=== PATIENT | female | born 1995 | race Caucasian/White ===

== ENCOUNTER 2019-02-01 19:07 | Emergency (ER) | payer OTHER ==
[~2019-02-01] VITALS: Ht 152.4 cm; Wt 54.4 kg
--- OUTSIDE RECORDS SUMMARY | 2019-02-01 19:09 | XMS REPORT ---
Author Author [facility] Address Unknown Phone Unavailable Care Team Providers Care Turbine Attendant Name Role Phone Unavailable Unavailable Payers Payer Name Policy Type Policy Number Effective Date Expiration Date Problems This patient has no known problems. Allergies, Adverse Reactions, Alerts Allergy Name Allergy Type Status Severity Reaction(s) Onset Date Inactive Date Treating Clinician Comments hydrocodone DA Active ID 2018-12-07 00:00:00 hydrocodone DA Active ID 2018-08-02 00:00:00 hydrocodone DA Active ID 2017-07-04 00:00:00 Medications This patient has no known medications. Results Test Description Test Time Test Comments Text Results Atomic Results Result Comments URINALYSIS COMPLETE 2018-12-07 18:07:00 UA COLOR (test code=COLU) YELLOW YELLOW UA APPEARANCE (test code=APPU) SLIGHTLY CLOUDY CLEAR UA GLUCOSE DIPSTICK (test code=DGLUU) NEGATIVE mg/dL NEGATIVE UA BILIRUBIN DIPSTICK (test code=BILU) NEGATIVE mg/dL NEGATIVE UA KETONE DIPSTICK (test code=KETU) 5 (Trace) mg/dL NEGATIVE UA SPECIFIC GRAVITY (test code=SGU) 1.009 1.001-1.035 UA BLOOD DIPSTICK (test code=MARII) 1+ (Small) NEGATIVE UA PH DIPSTICK (test code=IAN) 6.0 5.0-8.0 UA PROTEIN DIPSTICK (test code=PROU) Negative mg/dL NEGATIVE UA UROBILINIOGEN DIPSTICK (test code=URO) NEGATIVE mg/dL NEGATIVE UA NITRITE DIPSTICK (test code=KIANNA) NEGATIVE NEGATIVE UA LEUKOCYTE ESTERASE W REFLEX (test code=LEUUR) 3+ NEGATIVE UA WBC (test code=WBCU) 6-10 #/HPF 0-5 UA RBC (test code=RBCU) 0-2 #/HPF 0-5 UA EPITHELIAL CELLS (test code=EPIU) FEW per HPF FEW UA BACTERIA (test code=BACU) FEW #/HPF NONE UA MUCUS (test code=MUCU) FEW #/LPF FEW Urine Source? Clean CatchUR HCG [id number] 18:07:00* Test Item Value Reference Range Comments UR HCG QUAL (test code=HCGQLU) NEGATIVE This HCGQL test is NOT applicable for MALE patients.Check with nurse about probable order error.If Tumor Marker Test needed, nurse should order test "HCGTU"(Test #550.58648) Urine Source? Clean CatchURINALYSIS [id number] 18:04:00* Test Item Value Reference Range Comments UA COLOR (test code=COLU) YELLOW YELLOW UA APPEARANCE (test code=APPU) SLIGHTLY CLOUDY CLEAR UA GLUCOSE DIPSTICK (test code=DGLUU) NEGATIVE mg/dL NEGATIVE UA BILIRUBIN DIPSTICK (test code=BILU) NEGATIVE mg/dL NEGATIVE UA KETONE DIPSTICK (test code=KETU) 5 (Trace) mg/dL NEGATIVE UA SPECIFIC GRAVITY (test code=SGU) 1.009 1.001-1.035 UA BLOOD DIPSTICK (test code=MARII) 1+ (Small) NEGATIVE UA PH DIPSTICK (test code=IAN) 6.0 5.0-8.0 UA PROTEIN DIPSTICK (test code=PROU) Negative mg/dL NEGATIVE UA UROBILINIOGEN DIPSTICK (test code=URO) NEGATIVE mg/dL NEGATIVE UA NITRITE DIPSTICK (test code=KIANNA) NEGATIVE NEGATIVE UA LEUKOCYTE ESTERASE W REFLEX (test code=LEUUR) 3+ NEGATIVE UA WBC (test code=WBCU) per HPF 0-5 Urine Source? Clean CatchUR HCG [id number] 18:04:00* Test Item Value Reference Range Comments UR HCG QUAL (test code=HCGQLU) NEGATIVE This HCGQL test is NOT applicable for MALE patients.Check with nurse about probable order error.If Tumor Marker Test needed, nurse should order test "HCGTU"(Test #550.85780) Urine Source? Clean CatchURINALYSIS [id number] 18:02:00* Test Item Value Reference Range Comments UA COLOR (test code=COLU) YELLOW UA APPEARANCE (test code=APPU) CLEAR UA BILIRUBIN DIPSTICK (test code=BILU) NEGATIVE UA SPECIFIC GRAVITY (test code=SGU) 1.001-1.035 UA PH DIPSTICK (test code=IAN) 5.0-8.0 UA UROBILINIOGEN DIPSTICK (test code=URO) mg/dL 0.0-0.2 UA NITRITE DIPSTICK (test code=KIANNA) NEGATIVE UA LEUKOCYTE ESTERASE W REFLEX (test code=LEUUR) NEGATIVE UA WBC (test code=WBCU) per HPF 0-5 Urine Source? Clean CatchUR HCG [id number] 18:02:00* Test Item Value Reference Range Comments UR HCG QUAL (test code=HCGQLU) NEGATIVE This HCGQL test is NOT applicable for MALE patients.Check with nurse about probable order error.If Tumor Marker Test needed, nurse should order test "HCGTU"(Test #550.93440) Urine Source? Clean Catch- XR CHEST 1 [id number] 16:17:00 FAX: Jose Cruz Patterson NP [phone] [place]: [address]: REG Name: FELIBERTO RODRIGUEZ [facility] : [birth year] Age/S: 23/F [address] Unit #: [id number] Loc: [place] [address] Phys: Jose Cruz Patterson NP Acct: [id number] Dis Date: Status: REG ER PHONE #: [phone] Exam Date: 12/07/2018 1600 FAX #: [phone] Reason: SOB WITH DIZZINESS EXAMS: CPT CODE: [id number] XR CHEST 1 V [id number] REASON FOR EXAM: SOB WITH DIZZINESS EXAM ORDER DATE: 12/07/2018 3:41 PM Ordering Anayeli: Jose Cruz Patterson NP PROCEDURE: - XR CHEST 1 V COMPARISON: FINDINGS: Portable AP frontal view of the chest ob tained at 3:54 PM shows clear lungs without evidence of consolidation. The re is no evidence of effusion. The heart size is within normal limits. Pulmonary vasculatures are unremarkable. IMPRESSION: No acti ve disease. at 1 517 Reported and signed by: Donnie Moreno M.D. CC: Jose Cruz Patterson NP Technologist: KAI Haynes Trnscrd Date/Time/By: 0 12/07/2018 (7941) : By: ParulL Orig Print D/T: S: 12/07/2018 (4584) PAGE 1 Signed Report COMPREHENSIVE METABOLIC [id number] 16:14:00* Test Item Value Reference Range Comments SODIUM (test code=NA) 137 mmol/L 136-145 POTASSIUM (test code=K) 4.0 mmol/L 3.5-5.1 CHLORIDE (test code=CL) 102.0 mmol/L 98-107 CARBON DIOXIDE (test code=CO2) 26.0 mmol/L 21-32 ANION GAP (test code=GAP) 13.0 10-20 GLUCOSE (test code=GLU) 97 mg/dL 74-106 BLOOD UREA NITROGEN (test code=BUN) 11 mg/dL 7-18 GLOMERULAR FILTRATION RATE (test code=GFR) > 60 mL/min >=60 Estimated GFR by using Modified MDRD formula.Chronic kidney disease is defined as either kidney damageor GFR <60 mL/min/1.73 m2 for >3 months. CREATININE (test code=CREAT) 0.90 mg/dL 0.55-1.02 Note change in reference range due to change in reagent. BUN/CREATININE RATIO (test code=BUN/CREA) 11.8 10-20 TOTAL PROTEIN (test code=PROT) 7.7 gram/dL 6.4-8.2 ALBUMIN (test code=ALB) 4.0 g/dL 3.4-5.0 GLOBULIN (test code=GLOB) 3.7 gram/dL 2.7-4.2 ALBUMIN/GLOBULIN RATIO (test code=A/G) 1.1 0.75-1.50 CALCIUM (test code=CA) 9.0 mg/dL 8.5-10.1 BILIRUBIN TOTAL (test code=BILT) 1.10 mg/dL 0.0-1.0 SGOT/AST (test code=AST) 15 IUnit/L 15-37 SGPT/ALT (test code=ALT) 21 IUnit/L 12-78 ALKALINE PHOSPHATASE TOTAL (test code=ALKP) 71 IUnit/L 45-117 Note change in reference range due to change in reagent. [id number] 16:14:00* Test Item Value Reference Range Comments TROPONIN-I (test code=TROPI) <0.015 ng/mL 0-0.045 COMPREHENSIVE METABOLIC [id number] 16:04:00* Test Item Value Reference Range Comments SODIUM (test code=NA) 137 mmol/L 136-145 POTASSIUM (test code=K) 4.0 mmol/L 3.5-5.1 CHLORIDE (test code=CL) 102.0 mmol/L 98-107 CARBON DIOXIDE (test code=CO2) mmol/L 21-32 ANION GAP (test code=GAP) 10-20 GLUCOSE (test code=GLU) mg/dL 74-106 BLOOD UREA NITROGEN (test code=BUN) mg/dL 7-18 GLOMERULAR FILTRATION RATE (test code=GFR) mL/min >=60 CREATININE (test code=CREAT) mg/dL 0.55-1.02 BUN/CREATININE RATIO (test code=BUN/CREA) 10-20 TOTAL PROTEIN (test code=PROT) gram/dL 6.4-8.2 ALBUMIN (test code=ALB) g/dL 3.4-5.0 GLOBULIN (test code=GLOB) gram/dL 2.7-4.2 ALBUMIN/GLOBULIN RATIO (test code=A/G) 0.75-1.50 CALCIUM (test code=CA) mg/dL 8.5-10.1 BILIRUBIN TOTAL (test code=BILT) mg/dL 0.0-1.0 SGOT/AST (test code=AST) IUnit/L 15-37 SGPT/ALT (test code=ALT) IUnit/L 12-78 ALKALINE PHOSPHATASE TOTAL (test code=ALKP) IUnit/L 45-117 [id number] 16:04:00* Test Item Value Reference Range Comments TROPONIN-I (test code=TROPI) ng/mL 0-0.045 CBC W/AUTO [id number] 15:55:00* Test Item Value Reference Range Comments WHITE BLOOD CELL (test code=WBC) 8.1 K/mm3 4.5-12.5 RED BLOOD CELL (test code=RBC) 4.61 mill/mm3 3.7-5.2 HEMOGLOBIN (test code=HGB) 14.1 gram/dL 11.5-15.5 HEMATOCRIT (test code=HCT) 43.8 % 36.0-46.0 MEAN CELL VOLUME (test code=MCV) 95.0 fL 80-98 MEAN CELL HGB (test code=MCH) 30.6 picogram 27.0-33.0 MEAN CELL HGB CONCETRATION (test code=MCHC) 32.2 gram/dL 33.0-36.0 RED CELL DISTRIBUTION WIDTH (test code=RDW) 12.4 % 11.6-16.2 RED CELL DISTRIBUTION WIDTH SD (test code=RDW-SD) 42.8 fL 37.0-51.0 PLATELET COUNT (test code=PLT) 269 K/mm3 150-450 MEAN PLATELET VOLUME (test code=MPV) 11.6 fL 6.7-11.0 NEUTROPHIL % (test code=NT%) 64.7 % 39.0-69.0 IMMATURE GRANULOCYTE % (test code=IG%) 0.7 % 0.0-5.0 LYMPHOCYTE % (test code=LY%) 23.2 % 25.0-55.0 MONOCYTE % (test code=MO%) 8.6 % 0.0-10.0 EOSINOPHIL % (test code=EO%) 2.3 % 0.0-5.0 BASOPHIL % (test code=BA%) 0.5 % 0.0-1.0 NUCLEATED RBC % (test code=NRBC%) 0.0 % 0-0 NEUTROPHIL # (test code=NT#) 5.25 K/mm3 1.8-7.7 IMMATURE GRANULOCYTE # (test code=IG#) 0.06 x10 3/uL 0-0.03 LYMPHOCYTE # (test code=LY#) 1.89 K/mm3 1.0-5.0 MONOCYTE # (test code=MO#) 0.70 K/mm3 0-0.8 EOSINOPHIL # (test code=EO#) 0.19 K/mm3 0.0-0.5 BASOPHIL # (test code=BA#) 0.04 K/mm3 0.0-0.2 NUCLEATED RBC # (test code=NRBC#) 0.00 K/mm3 0.0-0.1 MANUAL DIFF REQUIRED (test code=MDIFF) NO
--- NOTE | 2019-02-01 20:40 | Diagnostic Imaging Report ---
KNEES STANDING AP VIEW, KNEE LEFT THREE VIEWS -views HISTORY: Pain. COMPARISON: None available. FINDINGS: Bones: No acute displaced fracture. Osseous alignment is within normal limits. Joints: The joint spaces are well-maintained. Soft tissues: The soft tissues appear unremarkable. IMPRESSION: No acute osseous abnormality. Signed by: Dr. Landen Castanon M.D. on 02/01/2019 8:37 PM
[2019-02-01] MEDS ORDERED: IBUPROFEN 600 MG TAB ONE (20:57)
[2019-02-01] MEDS ORDERED: ULTRAM50 MG PO (21:00)
[2019-02-01] MEDS ORDERED: KETOROLAC TROMETHAMINE 60 MG/2 ML VIAL IM ONE (21:00)
[2019-02-01] MEDS ORDERED: IBUPROFEN 600 MG TAB PO ONE (21:15)
== END 2019-02-01 21:26 | disposition home or self-care (01) ==
LOC: ER 19:07
DX: S83.522A Sprain of posterior cruciate ligament of left knee, initial encounter (principal); Y93.B9 Activity, other involving muscle strengthening exercises; Y92.008 Other place in unspecified non-institutional (private) residence as the place of occurrence of the external cause
CPT/HCPCS: 73565; 99283

== ENCOUNTER 2019-12-06 16:54 | Emergency (ER) | payer OTHER ==
[~2019-12-06] VITALS: Ht 152.4 cm; Wt 54.4 kg
[~2019-12-06 16:54] MED LIST: ULTRAM50 MG PO
[2019-12-06 18:45] LABS: BASOPHILS # (AUTO) 0.1 (0.0-0.1); BASOPHILS % 0.5 % (0.0-1.0); EOSINOPHILS # (AUTO) 0.1 (0.0-0.4); EOSINOPHILS % 0.8 % (0.0-6.0); HEMOGLOBIN 15.7 g/dL (12.0-16.0); LYMPHOCYTES # (AUTO) 2.8 (1.0-3.2); LYMPHOCYTES % 26.8 % (18.0-39.1); MEAN CORPUSCULAR HEMOGLOBIN 30.5 pg (28-32); MEAN CORPUSCULAR VOLUME 95.1 fL (81-99); MONOCYTES # (AUTO) 0.8 (0.2-0.8); MONOCYTES % 7.8 % (4.4-11.3); NEUTROPHILS # (AUTO) 6.8 (2.1-6.9); NEUTROPHILS % 63.7 % (38.7-80.0); PLATELET COUNT 281 x10e3/uL (140-360); RED BLOOD COUNT 5.15 x10e6/uL (3.6-5.1); RED CELL DISTRIBUTION WIDTH 12.8 % (11.7-14.4)
[2019-12-06 18:56] LABS: BILIRUBIN,URINE SMALL (NEGATIVE); CLARITY,URINE SL CLOUDY (CLEAR); COLOR,URINE YELLOW (YELLOW); KETONES,URINE NEGATIVE (NEGATIVE); LEUKOCYTE ESTERASE ,URINE 1+ (NEGATIVE); NITRITE,URINE NEGATIVE (NEGATIVE); PROTEIN,URINE DIPSTICK 2+ (NEGATIVE); URINE UROBILINOGEN 0.2 mg/dL (0.2 - 1)
[2019-12-06 18:57] LABS: ALANINE AMINOTRANSFERASE 22 IU/L (0-55); ALBUMIN/GLOBULIN RATIO 1.5 (0.8-2.0); ALKALINE PHOSPHATASE 77 IU/L (40-150); ANION GAP 13.7 mmol/L (8-16); BLOOD UREA NITROGEN 8 mg/dL (7-26); BUN/CREATININE RATIO 10 (6-25); CALCIUM 10.5 mg/dL (8.4-10.2); CARBON DIOXIDE 28 mmol/L (22-29); CHLORIDE 102 mmol/L (98-107); CREATININE, SERUM 0.83 mg/dL (0.57-1.11); EST GLOMERULAR FILTRATION RATE > 60 ML/MIN (60-); GLUCOSE 83 mg/dL (74-118); POTASSIUM 3.7 mmol/L (3.5-5.1); PREGNANCY TEST, URINE NEGATIVE (NEGATIVE); SODIUM 140 mmol/L (136-145)
[2019-12-06 19:03] LABS: RBC,URINE 0-5 /HPF (0-5); WBC,URINE (MAN) 21-50 /HPF (0-5)
[2019-12-06 19:04] LABS: BACTERIA,URINE FEW /HPF; EPITHELIAL CELLS,URINE FEW /LPF
[2019-12-06 19:05] LABS: AMORPHOUS SEDIMENT,URINE RARE (FEW); MUCUS,URINE RARE (RARE)
--- NOTE | 2019-12-06 20:06 | Diagnostic Imaging Report ---
EXAM: CT Abdomen and Pelvis WITH contrast INDICATION: rule out appendicitis COMPARISON: None. TECHNIQUE: Abdomen and pelvis were scanned utilizing a multidetector helical scanner from the lung base to the pubic symphysis after administration of IV contrast. Coronal and sagittal reformations were obtained. Dose modulation, iterative reconstruction, and/or weight based adjustment of the mA/kV was utilized to reduce the radiation dose to as low as reasonably achievable. Routine protocol was performed. Scan was performed when during portal venous phase. IV CONTRAST: 150 mL of Omnipaque 300 ORAL CONTRAST: Water COMPLICATIONS: None RADIATION DOSE: Total DLP: 186.62 mGy-cm Estimated effective dose: (DLP x 0.015 x size factor) mSv CTDIvol has been reviewed. It is below the limits set by the Radiation Protocol Committee (RPC). FINDINGS: LINES and TUBES: None. LOWER THORAX: Unremarkable HEPATOBILIARY: No focal hepatic lesions. No biliary ductal dilation. GALLBLADDER: No radio-opaque stones or sludge. No wall thickening. SPLEEN: No splenomegaly. PANCREAS: No focal masses or ductal dilatation. ADRENALS: No adrenal nodules KIDNEYS/URETERS: Kidneys enhance symmetrically. No hydronephrosis. No cystic or solid mass lesions. No stones. GI TRACT: No abnormal distention, wall thickening, or evidence of bowel obstruction. Appendix is normal. PELVIC ORGANS/BLADDER: Bilateral adnexal cystic lesions are incompletely characterized on this exam. There is a IUD in place in a retroverted uterus. LYMPH NODES: No lymphadenopathy. VESSELS: Unremarkable. PERITONEUM / RETROPERITONEUM: No free air or fluid. BONES: Unremarkable. SOFT TISSUES: Unremarkable. IMPRESSION: 1. Normal appendix. 2. Bilateral adnexal cystic lesions are incompletely characterized on this exam. Recommend further evaluation with pelvic ultrasound. Signed by: Farhad Crane MD on 12/06/2019 8:04 PM
[2019-12-06] MEDS ORDERED: ZOFRAN4 MG SL (20:35)
[2019-12-06 20:56] VITALS: BP 123/85
[2019-12-06] MEDS ORDERED: IOPAMIDOL 370 MG/ML 200 ML INFUS..BTL INJ ONE (21:16)
[2019-12-06] MEDS ORDERED: SODIUM CHLORIDE 0.9% 50ML 50 ML ONE (21:16)
== END 2019-12-06 21:09 | disposition home or self-care (01) ==
LOC: ER 16:54
DX: R10.13 Epigastric pain (principal); R19.7 Diarrhea, unspecified; N30.90 Cystitis, unspecified without hematuria
CPT/HCPCS: 36415; 74177; 80053; 81001; 81025; 82150; 85025; 87086; 87186; 99284; Q9967

== ENCOUNTER 2020-11-28 13:23 | Emergency (ER) | payer OTHER ==
[~2020-11-28] VITALS: Ht 152.4 cm; Wt 65.8 kg
[~2020-11-28 13:23] MED LIST changes: +ZOFRAN4 MG SL
[2020-11-28] MEDS ORDERED: ONDANSETRON HCL INJ 2MG/ML 2ML 2 MG/ML VIAL IV STA (13:37)
[2020-11-28] MEDS ORDERED: KETOROLAC TROMETHAMINE 30 MG/ML VIAL IV STA (13:37)
[2020-11-28] MEDS ORDERED: SODIUM CHLORIDE 0.9% 1000ML 1,000 ML IV STA (13:37)
[2020-11-28 14:07] LABS: BASOPHILS # (AUTO) 0.1 (0.0-0.1); BASOPHILS % 0.6 % (0.0-1.0); EOSINOPHILS # (AUTO) 0.2 (0.0-0.4); EOSINOPHILS % 1.7 % (0.0-6.0); HEMATOCRIT 39.4 % (34.2-44.1); MEAN CORPUSCULAR HEMOGLOBIN 30.7 pg (28-32); MEAN CORPUSCULAR VOLUME 93.1 fL (81-99); MONOCYTES # (AUTO) 0.8 (0.2-0.8); MONOCYTES % 8.4 % (4.4-11.3); NEUTROPHILS # (AUTO) 6.8 (2.1-6.9); NEUTROPHILS % 68.8 % (38.7-80.0); PLATELET COUNT 239 x10e3/uL (140-360); RED BLOOD COUNT 4.23 x10e6/uL (3.6-5.1); RED CELL DISTRIBUTION WIDTH 12.3 % (11.7-14.4)
[2020-11-28 14:30] LABS: PREGNANCY TEST, URINE NEGATIVE (NEGATIVE)
[2020-11-28 14:34] LABS: CLARITY,URINE HAZY (CLEAR); COLOR,URINE YELLOW (YELLOW)
[2020-11-28 14:38] LABS: KETONES,URINE TRACE (NEGATIVE); LEUKOCYTE ESTERASE ,URINE LARGE (NEGATIVE); NITRITE,URINE NEGATIVE (NEGATIVE); PROTEIN,URINE DIPSTICK TRACE (NEGATIVE); URINE UROBILINOGEN 1 mg/dL (0.2 - 1)
[2020-11-28 14:40] LABS: WBC,URINE (MAN) >50 /HPF (0-5)
[2020-11-28 14:41] LABS: AMORPHOUS SEDIMENT,URINE FEW (FEW); BACTERIA,URINE MODERATE /HPF; EPITHELIAL CELLS,URINE MODERATE /LPF; MUCUS,URINE MODERATE (RARE)
[2020-11-28 14:47] LABS: ALANINE AMINOTRANSFERASE 26 IU/L (0-55); ALBUMIN 3.7 g/dL (3.5-5.0); ALBUMIN/GLOBULIN RATIO 1.5 (0.8-2.0); ALKALINE PHOSPHATASE 58 IU/L (40-150); AMYLASE 52 U/L (25-125); ANION GAP 11.9 mmol/L (8-16); BLOOD UREA NITROGEN 13 mg/dL (7-26); BUN/CREATININE RATIO 13 (6-25); CALCIUM 8.6 mg/dL (8.4-10.2); CARBON DIOXIDE 24 mmol/L (22-29); CHLORIDE 105 mmol/L (98-107); CREATININE, SERUM 0.99 mg/dL (0.57-1.11); EST GLOMERULAR FILTRATION RATE > 60 ML/MIN (60-); GLUCOSE 94 mg/dL (74-118); LIPASE 24 U/L (8-78); POTASSIUM 3.9 mmol/L (3.5-5.1); SODIUM 137 mmol/L (136-145)
[2020-11-28] MEDS ORDERED: CEFTRIAXONE SOD 1 GM/NS 50 ML 50 ML IV ONE (15:15)
[2020-11-28] MEDS ORDERED: CEFTRIAXONE SOD 1 GM in SODIUM CHLORIDE 0.9% 50ML 50 ML IV ONE (15:15)
[2020-11-28] MEDS ORDERED: SODIUM CHLORIDE 0.9% 50ML 50 ML ONE (15:16)
[2020-11-28] MEDS ORDERED: IOPAMIDOL 370 MG/ML 200 ML INFUS..BTL INJ ONE (15:16)
[2020-11-28] MEDS ORDERED: CEFTRIAXONE SOD 1 GM VIAL ONE (15:47)
== END 2020-11-28 17:01 | disposition home or self-care (01) ==
LOC: ER 13:35
DX: R10.31 Right lower quadrant pain (principal); N39.0 Urinary tract infection, site not specified
CPT/HCPCS: 36415; 74177; 80053; 81001; 81025; 82150; 83690; 85025; 87086; 99283; J0696 ×2; J1885; J2405; J7030; Q9967

== ENCOUNTER 2023-10-27 20:26 | Emergency (ER) | payer SELFPAY ==
[~2023-10-27] VITALS: Ht 152.4 cm; Wt 73.5 kg
[2023-10-27] MEDS ORDERED: IOPAMIDOL 370 MG/ML 100 ML INFUS..BTL INJ ONE (21:06)
[2023-10-27] MEDS ORDERED: SODIUM CHLORIDE 0.9% 1000ML 1,000 ML IV ONE (21:15)
[2023-10-27] MEDS ORDERED: SODIUM CHLORIDE 0.9% 1000ML 1,000 ML ONE (21:23)
[2023-10-27] MEDS ORDERED: HYDROCODONE/APAP 5MG-325MG TAB PO ONE (22:00)
[2023-10-27] MEDS ORDERED: HYDROCODONE/APAP 5MG-325MG TAB ONE (22:11)
[2023-10-27] MEDS ORDERED: KETOROLAC TROMETHAMINE 30 MG/ML VIAL IV STA (23:46)
[2023-10-27] MEDS ORDERED: KETOROLAC TROMETHAMINE 30 MG/ML VIAL ONE (23:57)
[2023-10-28 01:23] VITALS: BP 132/78; PULSE 70; RESP 18; TEMP 98.4; O2SAT 100
[2023-10-28] MEDS ORDERED: ULTRAM 50MG50 MG PO (01:24)
== END 2023-10-28 01:30 | disposition home or self-care (01) ==
LOC: FSED 20:39
DX: R10.31 Right lower quadrant pain (principal); N83.01 Follicular cyst of right ovary; R11.2 Nausea with vomiting, unspecified
CPT/HCPCS: 74177; 76830; 76856; 80053; 81003; 81025; 85025; 96374; 99284; J1885; J7030; Q9967